=== PATIENT | male | born 1980 | race Caucasian/White ===

== ENCOUNTER → 2024-01-16 17:07 | Outpatient (REF) | payer BC, SELFPAY | LOC: RAD 17:07 | PROVIDERS: ATTENDING PHYSICIAN Internal Medicine Critical Care Medicine | DX: R05.3 Chronic cough (principal) | CPT/HCPCS: 71046 ==

== ENCOUNTER → 2024-02-06 18:06 | Outpatient (REF) | payer BC, SELFPAY | LOC: CLAB 18:06 | PROVIDERS: ATTENDING PHYSICIAN Physician Assistant | DX: Z20.2 Contact with and (suspected) exposure to infections with a predominantly sexual mode of transmission (principal) | CPT/HCPCS: 87624; 88112 ==

== ENCOUNTER → 2024-02-15 13:26 | Outpatient (REF) | payer SELFPAY | LOC: RAD 13:26 | PROVIDERS: ATTENDING PHYSICIAN Internal Medicine | DX: E78.5 Hyperlipidemia, unspecified (principal) | CPT/HCPCS: 75571 ==

== ENCOUNTER → 2024-02-21 06:31 | Day surgery (SDC) | payer BC, SELFPAY | LOC: GI 06:31 | PROVIDERS: ATTENDING PHYSICIAN Surgery | DX: K62.5 Hemorrhage of anus and rectum (principal); K64.9 Unspecified hemorrhoids; D12.5 Benign neoplasm of sigmoid colon; K63.5 Polyp of colon | CPT/HCPCS: 45385; 45381; 45380; 88305 ==